=== PATIENT | female | born 1980 | race Caucasian/White ===

== ENCOUNTER 2021-12-13 20:42 | Emergency (ER) | payer OTHER ==
[2021-12-13 21:07] VITALS: TEMP 98.1; BMI 33.6
[2021-12-13] MEDS ORDERED: ACETAMINOPHEN 1000 MG/100 ML BAG IVPB ONE (23:22)
[2021-12-13 23:57] LABS: CALCIUM 9.3 mg/dL (8.5-10.1)
[2021-12-13 23:58] LABS: ALBUMIN 3.5 g/dl (3.4-5.0); BLOOD UREA NITROGEN 9.8 mg/dL (7-18); MAGNESIUM 2.4 mg/dL (1.8-2.4)
[2021-12-14 00:01] LABS: CREATININE 0.6 mg/dL (0.55-1.3)
[2021-12-14 00:03] LABS: BILIRUBIN,TOTAL 0.4 mg/dL (0.2-1); TOT PROT 7.5 g/dl (6.4-8.2)
[2021-12-14] MEDS ORDERED: morphine CARPU-JECT 2 MG/1 ML DISP.SYRIN IVPUSH ONE (00:31)
[2021-12-14 00:47] VITALS: BP 130/84; PULSE 78
[2021-12-14 02:21] LABS: BASO % 0.7 % (0-2.0); EOS % 2.4 % (0-4.5); HEMATOCRIT 40.2 % (32.4-45.2); HEMOGLOBIN 13.5 GM/dL (10.7-15.3); LYMPH % 38.7 % (8-40); MCH 31.4 pg (25.7-33.7); MCHC 33.6 g/dl (32.0-36.0); MEAN CELL VOLUME 93.5 fl (80-96); MEAN PLT VOLUME 8.7 fl (7.5-11.1); MONO % 7.8 % (3.8-10.2); NEUT % 50.4 % (42.8-82.8); PLATELET COUNT 300 10^3/uL (134-434); RDW 14.6 % (11.6-15.6); WHITE BLOOD COUNT 6.7 K/mm3 (4.0-10.0)
== END 2021-12-14 03:10 | disposition home or self-care (01) ==
LOC: JER 20:42
PROC: 3E033GC Introduction of Other Therapeutic Substance into Peripheral Vein, Percutaneous Approach (ICD-10-PCS; principal; 2021-12-13)
DX: R07.9 Chest pain, unspecified (principal)
CPT/HCPCS: 36415; 71046-TC-FY; 80053; 83735; 84484; 85025; 93005; 93010; 99285-25

== ENCOUNTER 2022-01-20 17:47 | Emergency (ER) | payer OTHER ==
[2022-01-20 17:57] VITALS: BMI 34.1
[2022-01-20] MEDS ORDERED: AMPICILLIN NA/SULBACTAM NA 3 GM in SODIUM CHLORIDE 100 ML IVPB ONE (18:51)
[2022-01-20] MEDS ORDERED: KETOROLAC TROMETHAMINE 30 MG/1 ML VIAL IVPUSH ONE ×2 (18:59→23:30)
[2022-01-20] MEDS ORDERED: KETOROLAC TROMETHAMINE 30 MG/1 ML VIAL ONE (19:12)
[2022-01-20 19:33] LABS: BASO % 0.7 % (0-2.0); EOS % 1.1 % (0-4.5); HEMATOCRIT 40.8 % (32.4-45.2); HEMOGLOBIN 13.7 GM/dL (10.7-15.3); LYMPH % 28.1 % (8-40); MCH 31.6 pg (25.7-33.7); MCHC 33.6 g/dl (32.0-36.0); MEAN PLT VOLUME 9.2 fl (7.5-11.1); MONO % 10.4 % (3.8-10.2); NEUT % 59.7 % (42.8-82.8); PLATELET COUNT 258 10^3/uL (134-434); RBC 4.34 M/mm3 (3.60-5.2); RDW 14.2 % (11.6-15.6); WHITE BLOOD COUNT 8.3 K/mm3 (4.0-10.0)
[2022-01-20] MEDS ORDERED: DIPHTH,PERTUSS(ACELL),TET 0.5 ML DISP.SYRIN IM ONE ×2 (19:34→19:36)
[2022-01-20 19:38] LABS: ALBUMIN 3.7 g/dl (3.4-5.0); BLOOD UREA NITROGEN 15.2 mg/dL (7-18); CALCIUM 9.5 mg/dL (8.5-10.1)
[2022-01-20 19:41] LABS: CREATININE 0.7 mg/dL (0.55-1.3)
[2022-01-20 19:43] LABS: BILIRUBIN,TOTAL 0.4 mg/dL (0.2-1); TOT PROT 7.8 g/dl (6.4-8.2)
[2022-01-20 20:43] LABS: CALCIUM 8.9 mg/dL (8.5-10.1)
[2022-01-20 20:44] LABS: ALBUMIN 3.4 g/dl (3.4-5.0); BLOOD UREA NITROGEN 16.6 mg/dL (7-18)
[2022-01-20 20:47] LABS: CREATININE 0.6 mg/dL (0.55-1.3)
[2022-01-20 20:48] LABS: TOT PROT 6.6 g/dl (6.4-8.2)
[2022-01-20 20:49] LABS: BILIRUBIN,TOTAL 0.2 mg/dL (0.2-1)
[2022-01-20 20:54] LABS: PLATELET ESTIMATE NORMAL
[2022-01-20 23:21] VITALS: BP 150/89; PULSE 109; TEMP 98.9
[2022-01-21] MEDS ORDERED: KETOROLAC TROMETHAMINE 30 MG/1 ML VIAL ONE (00:01)
== END 2022-01-21 05:18 | disposition short-term general hospital (02) ==
LOC: JER 17:47
PROC: 3E0234Z Introduction of Serum, Toxoid and Vaccine into Muscle, Percutaneous Approach (ICD-10-PCS; principal; 2022-01-20)
PROC: 3E033GC Introduction of Other Therapeutic Substance into Peripheral Vein, Percutaneous Approach (ICD-10-PCS; principal; 2022-01-20)
DX: S61.451A Open bite of right hand, initial encounter (principal); Y04.1XXA Assault by human bite, initial encounter
CPT/HCPCS: 0241U-QW; 36415; 73130-TC-RT-FY; 80053; 85025; 87040; 87807; 90471; 90715; 96365; 96375; 96376; 99284-25; C9803-CS; U0003; U0005

== ENCOUNTER 2023-01-11 18:48 | Emergency (ER) | payer OTHER ==
[2023-01-11 18:58] VITALS: BP 169/94; PULSE 92; RESP 16; TEMP 98.6; BMI 83.5
[2023-01-11] MEDS ORDERED: ACETAMINOPHEN 1000 MG/100 ML BAG IVPB ONE (19:56)
[2023-01-11] MEDS ORDERED: LIDOCAINE 5% TOPICAL PATCH TP ONE (19:56)
[2023-01-11] MEDS ORDERED: ACETAMINOPHEN 325 MG TABLET (FP) PO ONE (19:58)
[2023-01-11] MEDS ORDERED: ACETAMINOPHEN 325 MG TABLET (FP) ONE (19:59)
[2023-01-11] MEDS ORDERED: LIDOCAINE 5% TOPICAL PATCH ONE (19:59)
[2023-01-11 20:44] LABS: BASO % 0.6 % (0-2.0); EOS % 2.1 % (0-4.5); LYMPH % 26.8 % (8-40); MCH 31.7 pg (25.7-33.7); MCHC 34.3 g/dl (32.0-36.0); MEAN CELL VOLUME 92.4 fl (80-96); MEAN PLT VOLUME 8.6 fl (7.5-11.1); MONO % 10.2 % (3.8-10.2); NEUT % 60.3 % (42.8-82.8); PLATELET COUNT 349 10^3/uL (134-434); RBC 4.11 M/mm3 (3.60-5.2); RDW 13.7 % (11.6-15.6); WHITE BLOOD COUNT 10.1 K/mm3 (4.0-10.0)
[2023-01-11 20:56] LABS: ALBUMIN 3.7 g/dl (3.4-5.0); BLOOD UREA NITROGEN 16.1 mg/dL (7-18); CALCIUM 9.1 mg/dL (8.5-10.1)
[2023-01-11 20:59] LABS: CREATININE 0.8 mg/dL (0.55-1.3)
[2023-01-11 21:01] LABS: BILIRUBIN,TOTAL 0.5 mg/dL (0.2-1); TOT PROT 6.8 g/dl (6.4-8.2)
[2023-01-11] MEDS ORDERED: KETOROLAC TROMETHAMINE 30 MG/1 ML VIAL IM ONE (21:18)
[2023-01-11] MEDS ORDERED: KETOROLAC TROMETHAMINE 30 MG/1 ML VIAL ONE (21:19)
[2023-01-11] MEDS ORDERED: LIDOCAINE PATCH REMOVAL MC SCH (22:00)
== END 2023-01-11 21:48 | disposition home or self-care (01) ==
LOC: JER 18:48
PROC: 3E0233Z Introduction of Anti-inflammatory into Muscle, Percutaneous Approach (ICD-10-PCS; principal; 2023-01-11)
DX: R07.9 Chest pain, unspecified (principal); M79.602 Pain in left arm
CPT/HCPCS: 36415; 71045-TC-FY; 80053; 84484; 84703; 85025; 93005; 93010; 99285-25

== ENCOUNTER 2024-05-14 15:23 | Emergency (ER) | payer OTHER ==
[2024-05-14 15:43] VITALS: TEMP 98.3; BMI 30.9
[2024-05-14 17:04] LABS: BASO % 0.5 % (0-2.0); EOS % 1.2 % (0-4.5); HEMATOCRIT 40.7 % (32.4-45.2); HEMOGLOBIN 13.9 GM/dL (10.7-15.3); LYMPH % 24.5 % (8-40); MCH 31.2 pg (25.7-33.7); MCHC 34.1 g/dl (32.0-36.0); MEAN CELL VOLUME 91.5 fl (80-96); MONO % 10.3 % (3.8-10.2); NEUT % 63.5 % (42.8-82.8); PLATELET COUNT 416 10^3/uL (134-434); RBC 4.45 M/mm3 (3.60-5.2); RDW 13.8 % (11.6-15.6); WHITE BLOOD COUNT 9.7 K/mm3 (4.0-10.0)
[2024-05-14 17:09] LABS: INR 1.18 (0.83-1.09); PROTHROMBIN TIME (PATIENT) 13.3 SEC (9.7-13.0)
[2024-05-14 17:12] LABS: ACTIVATED PTT 31.5 SECONDS (25.2-36.5)
[2024-05-14 17:32] LABS: POTASSIUM 5.8 mmol/L (3.5-5.1)
[2024-05-14 17:34] LABS: ALBUMIN 3.6 g/dl (3.4-5.0); CALCIUM 9.8 mg/dL (8.5-10.1)
[2024-05-14 17:35] LABS: BLOOD UREA NITROGEN 11.5 mg/dL (7-18)
[2024-05-14 17:38] LABS: CREATININE 0.6 mg/dL (0.55-1.3)
[2024-05-14 17:39] LABS: BILIRUBIN,TOTAL 0.4 mg/dL (0.2-1); TOT PROT 7.2 g/dl (6.4-8.2)
[2024-05-14 17:47] VITALS: RESP 16
[2024-05-14 19:01] VITALS: BP 162/74; PULSE 74
== END 2024-05-14 19:02 | disposition short-term general hospital (02) ==
LOC: JER 15:23
DX: M79.601 Pain in right arm (principal); I77.70 Dissection of unspecified artery; M54.2 Cervicalgia; M79.89 Other specified soft tissue disorders; Z20.822 Contact with and (suspected) exposure to COVID-19
CPT/HCPCS: 0241U-QW; 36415; 80053; 85025; 85610; 85730; 86850; 86900; 86901; 93005; 93010; 99285-25

== ENCOUNTER 2025-05-10 20:00 | Emergency (ER) | payer OTHER ==
[2025-05-10 20:23] VITALS: TEMP 98.2; BMI 36.6
[2025-05-10] MEDS ORDERED: CARVEDILOL 6.25 MG TABLET (FP) ONE (21:21)
[2025-05-10] MEDS ORDERED: ACETAMINOPHEN INJECTION 100 ML ONE (21:21)
[2025-05-10] MEDS ORDERED: METOCLOPRAMIDE HCL INJECTION 10 MG/2 ML VIAL ONE (21:23)
[2025-05-10] MEDS: CARVEDILOL 6.25 MG TABLET (FP) PO ONE (22:01)
[2025-05-10] MEDS: ACETAMINOPHEN 1000 MG/100 ML BAG IVPB ONE (22:01)
[2025-05-10] MEDS: METOCLOPRAMIDE HCL INJECTION 10 MG/2 ML VIAL IVPB ONE (22:01)
[2025-05-10 22:21] LABS: ABSOLUTE IMMATURE GRANULOCYTES 0.05 x10^3/uL (0.0-0.031); BASOPHILS # 0.05 x10^3/uL (0.01-0.08); EOSINOPHIL % 1.8 % (0.7-5.8); EOSINOPHILS # 0.17 x10^3/uL (0.04-0.36); MCHC 30.4 g/dl (32.2-35.5); MEAN CELL VOLUME 84.6 fl (79.4-94.8); MEAN PLT VOLUME 10.9 fl (9.4-12.3); MONOCYTE # 0.86 x10^3/uL (0.24-0.86); MONOCYTE % 8.9 % (4.7-12.5); RDW 15.6 % (12.2-17.1); URINE APPEARANCE CLEAR; URINE BILIRUBIN NEGATIVE (NEGATIVE); URINE COLOR YELLOW; URINE GLUCOSE (UA) NEGATIVE (NEGATIVE); URINE KETONE NEGATIVE (NEGATIVE); URINE LEUK ESTERASE NEGATIVE (NEGATIVE); URINE NITRITE NEGATIVE (NEGATIVE); URINE PROTEIN NEGATIVE (NEGATIVE); URINE UROBILINOGEN 0.2 mg/dL (0.2-1.0)
[2025-05-10 22:30] LABS: INR 1.32 (0.83-1.09); PROTHROMBIN TIME (PATIENT) 14.5 SEC (9.7-13.0)
[2025-05-10 22:32] LABS: ACTIVATED PTT 31.8 SECONDS (25.2-36.5)
[2025-05-10 23:08] LABS: HCV DIAGNOSTIC IN-HOUSE W/RFLX NON-REACTIVE (NONREACTIVE)
[2025-05-10 23:09] LABS: HIV INTERPRETATION NEGATIVE (NEGATIVE)
[2025-05-10 23:40] LABS: GLUCOSE,RANDOM 94.0 mg/dL (74-106); TOT PROT 8.1 g/dl (6.4-8.2)
[2025-05-10 23:41] LABS: CO2 23.0 mmol/L (21-32)
[2025-05-10 23:42] LABS: ALK PHOS 122.0 U/L (40-150)
[2025-05-10 23:45] LABS: SGOT/AST 26.0 U/L (5-34); SGPT/ALT 32.0 U/L (0-55)
[2025-05-10 23:46] LABS: CREATININE 0.58 mg/dL (0.55-1.3)
[2025-05-11 00:25] VITALS: BP 131/85; PULSE 74; RESP 16
== END 2025-05-11 00:28 | disposition home or self-care (01) ==
LOC: JER 20:00
PROC: 3E033NZ Introduction of Analgesics, Hypnotics, Sedatives into Peripheral Vein, Percutaneous Approach (ICD-10-PCS; principal; 2025-05-10)
PROC: 3E033GC Introduction of Other Therapeutic Substance into Peripheral Vein, Percutaneous Approach (ICD-10-PCS; 2025-05-10)
DX: R51.9 Headache, unspecified (principal); I10 Essential (primary) hypertension; R42 Dizziness and giddiness
CPT/HCPCS: 36415; 71045-TC-FY; 80053; 81003; 83735; 84484; 85025; 85610; 85730; 86803; 86850; 86900; 86901; 87086; 87389; 87637-QW; 93005; 93010; 96374; 96375; 99285-25